=== PATIENT | female | born 1975 | race Two or more races ===

== ENCOUNTER 2016-09-02 09:58 | Day surgery (SDC) | payer OTHER, MEDICAID ==
[2016-09-02] MEDS ORDERED: LACTATED RINGERS 1,000 ML ONE (10:28)
[2016-09-02] MEDS ORDERED: IV START KIT ONE (10:28)
[2016-09-02] MEDS ORDERED: LACTATED RINGERS 1,000 ML IV SCH ×2 (10:36→14:11)
[2016-09-02] MEDS ORDERED: LIDOCAINE 1% 2 ML VIAL ID PRN (10:36)
[2016-09-02] MEDS ORDERED: IOPAMIDOL 300 (61%) 100 ML VIAL ONE (11:14)
[2016-09-02] MEDS ORDERED: FENTANYL 100 MCG/2 ML VIAL ONE (11:24)
[2016-09-02] MEDS ORDERED: MIDAZOLAM HCL 5 MG/5 ML VIAL ONE (11:24)
[2016-09-02] MEDS ORDERED: PROPOFOL 20 ML IV ONE (11:29)
[2016-09-02] MEDS ORDERED: ROCURONIUM BROMIDE 10 MG/ML DOSE IV ONE (11:29)
[2016-09-02] MEDS ORDERED: DEXAMETHASONE SOD PHOS 4 MG/1 ML VIAL ONE (11:31)
[2016-09-02] MEDS ORDERED: ONDANSETRON 4 MG/2ML 2 ML VIAL ONE (11:31)
--- NOTE | 2016-09-02 13:52 | RAD ---
ERCP BILIARY DUCT COMPARISON: ERCP, 06/13/2016 HISTORY: Removal of biliary stent after a laparoscopic cholecystectomy 06/14/2016. Fluoroscopy time: 45.4 seconds Contrast: Nonionic contrast. FINDINGS: Common bile duct: Filled with nonionic contrast. No filling defect. The stent was successfully removed. Common hepatic duct: Normal. Intrahepatic bile ducts: Normal. Duodenum: Normal. Sphincter of Ethan: Normal. IMPRESSION: 1. Successful removal of biliary stent.
[2016-09-02] MEDS ORDERED: HYDROMORPHONE HCL 1 MG/ML SYRINGE IV PRN (14:11)
[2016-09-02] MEDS ORDERED: ONDANSETRON 4 MG/2ML 2 ML VIAL IV PRN (14:11)
[2016-09-02] MEDS ORDERED: OXYCODONE/ACETAMINOPHEN 5/325 MG TABLET PO PRN (14:11)
== END 2016-09-02 15:20 | disposition home or self-care (01) ==
LOC: SDC 09:58
PROVIDERS: ATTEND Surgery
PROC: 0FPB8DZ Removal of Intraluminal Device from Hepatobiliary Duct, Via Natural or Artificial Opening Endoscopic (ICD-10-PCS; principal; 2016-09-02)
DX: Z45.89 Encounter for adjustment and management of other implanted devices (principal)